=== PATIENT | male | born 1970 | race African-American/Black ===

== ENCOUNTER 2022-05-06 19:30 | Outpatient (CLI) | payer MEDICARE, MEDICAID | END 2022-05-06 19:31 | disposition home or self-care (01) | LOC: SLEEPLAB 19:30 | PROVIDERS: ATTEND Internal Medicine Critical Care Medicine | DX: G47.33 Obstructive sleep apnea (adult) (pediatric) (principal); R06.83 Snoring; G47.10 Hypersomnia, unspecified; E66.9 Obesity, unspecified; Z68.34 Body mass index [BMI] 34.0-34.9, adult | CPT/HCPCS: 95811 ==

== ENCOUNTER 2022-12-05 14:43 | Outpatient (CLI) | payer OTHER, MEDICAID | END 2022-12-05 14:44 | disposition home or self-care (01) | LOC: SCSMRI 14:43 | PROVIDERS: ATTEND Family Medicine | DX: M67.912 Unspecified disorder of synovium and tendon, left shoulder (principal); M19.012 Primary osteoarthritis, left shoulder; S41.012A Laceration without foreign body of left shoulder, initial encounter ==

== ENCOUNTER 2023-05-28 08:00 | Outpatient (CLI) | payer OTHER | END 2023-05-28 08:01 | disposition home or self-care (01) | LOC: NM 08:00 | PROVIDERS: ATTEND Student in an Organized Health Care Education/Training Program | DX: E21.3 Hyperparathyroidism, unspecified (principal) | CPT/HCPCS: 78072; A9500 ==